=== PATIENT | male | born 1960 | race Caucasian/White ===

== ENCOUNTER 2020-10-19 04:53 | Emergency (ER) | payer SELFPAY ==
[2020-10-19 04:57] VITALS: BP 211/174; PULSE 160; RESP 26; TEMP 36.1; O2SAT 100
--- NOTE | 2020-10-19 05:14 | PC.NURSE ---
Myself, Lizet LR and DASHAWN Soliz present in room with patient. Patient was explained multiple times the importance of his conditions and the emergent nature of how the patient presented. Patient was explained by DASHAWN Soliz the importance of seeking medical treatment at this time and the risk of not doing so could cause . Patient stated multiple times I paid for the [employer] [address] for a week, although we are staying for a month, they are okay with it, I will just go there and come back when I need help . I walked in here and I will walk out . I talked to the pharmacist down the street and he said I could give him $1000 and he would give me a slip of paper and I could get any medicine I wanted . I will just go down and talk to the man in the white suit and get the medications I need . Patient states its against my [employer] to have my blood pressure took, I didn't ask for that, you cut off my blood circulation to my arm. DASHAWN Soliz explained to the patient and the patients the risk of the patient leaving. The patient is alert and oriented x 4 and states he is aware of the risks and wishes to not be seen and have further tests done at this time. Patient states I am walking out of here .
--- NOTE | 2020-10-19 05:16 | ECG_ITS ---
Measurements Intervals [place] Rate: 153 P: MO: 0 QRS: 88 QRSD: 92 T: 25 QT: 270 QTc: 431 Interpretive Statements ATRIAL FIBRILLATION WITH RAPID VENTRICULAR RESPONSE NONSPECIFIC ST & T-WAVE ABNORMALITY- INF/LAT LEADS BASELINE ARTIFACT- I, II, III, AVR, AVL, AVF ABNORMAL ECG Electronically Signed On 10-19-2020 11:22:35 CDT by Gary Blas D.O.
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
== END 2020-10-19 05:17 | disposition left against medical advice (07) ==
PROVIDERS: Emergency Provider Emergency Medicine
DX: I48.91 Unspecified atrial fibrillation (principal)
CPT/HCPCS: 93005; 99283